=== PATIENT | male | born 1945 | race American Indian/Alaskan Native ===

== ENCOUNTER 2019-05-29 08:40 | Outpatient (CLI) | payer OTHER ==
--- NOTE | 2019-05-29 11:31 | Magnetic Resonance Report ---
MR ABDOMEN WITH AND WITHOUT CONTRAST HISTORY: Cyst of kidney TECHNIQUE: Multisequence, multiplanar MRI before and after 18 cc of MultiHance intravenously. COMPARISON: None at this facility. FINDINGS: The kidneys are normal size and position measuring 9-10 cm in length. There 2 cysts within the left k idney. A 1.5 cm simple cyst is identified in the superior left kidney. A 2.0 cm cyst with mild editing intern al hemorrhagic change or proteinaceous debris is identified near the inferior pole. There are approxi mately 6 or 7 tiny simple cysts in the right kidney measuring less than 1 cm. No evidence for suspici ous or enhancing renal mass. No obstructive uropathy. The liver is normal size and contour. A 1.3 cm cyst is noted near the liver hilum. Cholecystectomy cancino s been performed. No biliary dilatation. The pancreas, spleen, adrenal glands, aorta and visualized b owel loops are within normal limits. No evidence for ascites, adenopathy or inflammatory changes. IMPRESSION: Bilateral renal cysts as described above. No suspicious renal mass. Liver cyst. Signer Name: Mao Remy Jr, MD Signed: 05/29/2019 11:27 AM Workstation Name: [id number]
== END 2019-05-29 08:41 | disposition home or self-care (01) ==
LOC: MRI 08:40
PROVIDERS: ATTEND Urology
DX: N28.1 Cyst of kidney, acquired (principal)
CPT/HCPCS: 74183; A9577